=== PATIENT | male | born 1980 | race Caucasian/White ===

== ENCOUNTER 2019-09-06 07:35 | Day surgery (SDC) | payer OTHER ==
[~2019-09-06 07:35] MED LIST: CEFAZOLIN SODIUM IN 0.9 % NACL 2 GM/100 ML BAG IV ONE; LACTATED RINGERS 1,000 ML IV ONE
--- NOTE | 2019-09-06 08:08 | ANESTHESIA ---
Pre-Anesthesia VS, & Labs - Diagnosis right wrist ganglion cyst - Procedure right wrist volar ganglion cyst Vital Signs: Temp Pulse Resp BP Pulse Ox 36.7 C 82 16 123/81 H 97 09/06/19 07:50 09/06/19 07:50 09/06/19 07:50 09/06/19 07:50 09/06/19 07:50 Height 5 ft 7 in Weight (kg) 101.7 kg - NPO >8 hours Home Medications and Allergies Home Medications: Ambulatory Orders Clindamycin Phosphate [Cleocin T] 30 gm TP 08/29/19 Doxycycline Hyclate 100 mg PO BID 08/29/19 Omeprazole 20 mg PO 08/29/19 Clindamycin Phosphate [Cleocin T] 30 gm TP 08/29/19 Doxycycline Hyclate 100 mg PO BID 08/29/19 Omeprazole 20 mg PO 08/29/19 Allergies/Adverse Reactions: Allergies Allergy/AdvReac Type Severity Reaction Status Date / Time Penicillins Allergy Unknown Verified 08/29/19 10:20 Anes History & Medical History - Anesthetic History Anesthesia Complications: reports: No previous complications - Medical History Cardiovascular: reports: None Pulmonary: reports: None Gastrointestinal: reports: GERD Urinary: reports: None Musculoskeletal: reports: Other Endocrine/Autoimmune: reports: None Skin: reports: None, Other (herpes) - Surgical History Orthopedic: Other Exam General: Alert Dental: WNL Mouth Opening: Can't Open Mouth Mallampati classification: II Respiratory: Lungs clear Cardiovascular: Regular rate, Normal S1, Normal S2 Plan Anesthesia Type: General Consent for Procedure(s) Verified and Reviewed: Yes Code Status: Attempt Resuscitation ASA classification: 2-Mild systemic disease Is this case an emergency?: No
[2019-09-06] MEDS ORDERED: BUPIVACAINE 0.5% PF 10 ML VIAL ONE (08:18)
[2019-09-06] MEDS ORDERED: BUPIVACAINE 0.25% PF 30 ML VIAL ONE (08:27)
[2019-09-06] MEDS ORDERED: fentaNYL 100 MCG/2 ML VIAL IVP ONE (08:36)
[2019-09-06] MEDS ORDERED: MIDAZOLAM 2 MG/2 ML VIAL IVP ONE (08:36)
[2019-09-06] MEDS ORDERED: KETOROLAC 30 MG/ML VIAL IVP ONE (08:36)
[2019-09-06] MEDS ORDERED: PROPOFOL 200 MG/20 ML VIAL IVP ONE (08:36)
[2019-09-06] MEDS ORDERED: LIDOCAINE-MPF 2% 5 ML VIAL IM ONE (08:36)
[2019-09-06] MEDS ORDERED: DEXAMETHASONE 4 MG/ML VIAL IVP ONE (08:36)
[2019-09-06] MEDS ORDERED: ONDANSETRON 4 MG/2 ML VIAL IVP ONE (08:36)
[2019-09-06] MEDS ORDERED: BUPIVACAINE 0.5% PF 10 ML VIAL IM ONE (08:59)
[2019-09-06] MEDS ORDERED: oxyCODONE 5 MG TABLET PO PRN (09:32)
[2019-09-06] MEDS ORDERED: ONDANSETRON 4 MG/2 ML VIAL IVP PRN (09:32)
[2019-09-06] MEDS ORDERED: LACTATED RINGERS 1,000 ML IV ONE (09:33)
--- NOTE | 2019-09-06 09:36 | OPERATIVE REPORT ---
Operative Report - Other Other Information/Narrative: Date of Surgery: 06 September 2019 Pre-Op Diagnosis: Right volar wrist ganglion Procedure: Right volar wrist ganglion excision Postop Diagnosis: Same Primary Surgeon: James Vaz Secondary Surgeon: None Complications: None Tourniquet Time: 18 minutes EBL: 5 cc Postoperative Protocol: Leave splint on until follow-up. Suture tails cut at 2 weeks. Range of motion from 2-6 weeks. Strengthening may begin at 6 weeks. Indication For Surgery: 38-year-old male with a history of a dorsal wrist ganglion excised in 2018 that did well. 1 year later he noticed a bump on the volar aspect of the wrist which was painful when doing push-ups or other resisted loading activities. He has failed nonoperative treatment and desired surgical excision. The risks, benefits, and alternatives were discussed. Risks include pain, bleeding, infection, damage to nearby structures, numbness, lack of symptom relief, implant complications, nonunion, need for further surgery, DVT, PE, stroke, and . Written consent was obtained. Procedure in Detail: The patient was met in the pre-operative hold area on the day of the procedure. The operative extremity was signed and questions were answered. The patient was brought to the operating room and a general anesthetic was administered. Supine position was used and bony prominences were padded. Standard prepping and draping was performed. A time out confirmed patient identification, laterality, procedure, allergies, antibiotics, and images. An Esmarch was used to exsanguinate the limb and the tourniquet was elevated to 200 mmHg. The wrist was extended to accentuate the mass. A 3 cm longitudinal hockey-stick incision was made directly overlying the mass angled at the wrist crease toward the thumb. Electrocautery was used to obtain hemostasis. Scissor dissection was used to separate the mass from the surrounding fascia and connective tissue. Traction was pulled on the mass with an Allis and I carefully dissected around it tracing the stalk back to the tendon sheath of the flexor carpi radialis at the location where it enters its fibro-osseous tunnel. The stalk was excised with a 5 mm square section of sheath. It was excised en bloc and the mass was passed off to the back table and sent for pathology. I carefully inspected the wound to ensure that all of the cyst had been fully excised. The wound was then irrigated copiously with sterile saline. The incision was closed with nylon ho rizontal mattress sutures. 10 cc of quarter percent Marcaine was placed near the wound. A sterile dressing was applied and a volar resting splint was applied. The patient was awakened and transferred to recovery room.
[2019-09-06 10:31] VITALS: BP 120/89
== END 2019-09-06 07:36 | disposition home or self-care (01) ==
LOC: SDS 07:35
PROVIDERS: ATTEND Orthopaedic Surgery
PROC: 0LB50ZZ Excision of Right Lower Arm and Wrist Tendon, Open Approach (ICD-10-PCS; principal; 2019-09-06 08:45)
DX: M67.431 Ganglion, right wrist (principal); F17.220 Nicotine dependence, chewing tobacco, uncomplicated; F17.210 Nicotine dependence, cigarettes, uncomplicated; F17.290 Nicotine dependence, other tobacco product, uncomplicated; Z80.9 Family history of malignant neoplasm, unspecified; Z82.49 Family history of ischemic heart disease and other diseases of the circulatory system

== ENCOUNTER 2020-04-30 14:40 | Outpatient (CLI) | payer OTHER ==
[2020-04-30] MEDS ORDERED: GADOBUTROL 10 MMOL/10 ML VIAL ONE (15:24)
[2020-04-30] MEDS ORDERED: GADOBUTROL 10 MMOL/10 ML VIAL IVP ONE (16:09)
--- NOTE | 2020-04-30 16:49 | MRI Report ---
PROCEDURE: Brain W/WO INDICATIONS: HEADACHE, NAUSEA, VERTIGO CONTRAST: IV CONTRAST: Gadavist ml: 10 TECHNIQUE: Noncontrast axial T1 spin echo, axial T2 fast spin echo, sagittal and axial FLAIR, coronal T2 fast sp in echo, axial gradient echo, axial diffusion and ADC through the brain. In this patient, dedicated thin section coronal T2-weighted images imaging were performed through the hippocampal formations. Af ter the administration of contrast, axial and coronal T1 spin echo with fat saturation through the br ain. COMPARISON: None. FINDINGS: Image quality: Excellent. CSF spaces: Basal cisterns are patent. No extra-axial fluid collections. Ventricles are normal in size and shape. Brain: No midline shift. No intracranial bleeds or masses. No abnormal intracranial enhancement. There is cerebral volume loss for age. There is periventricular white matter chronic small vessel is chemic change. The brainstem appears normal. Diffusion-weighted images demonstrate no acute ischemi c insults. No chronic ischemic insults. Normal intravascular flow voids are present. Scrutiny is g iven to the hippocampal formations. No focal abnormality or significant asymmetry can be seen. Incide ntal note is made of a cavum of septum pellucidum. This is of likely no clinical consequence, when in cidentally discovered in isolation. Skull and face: Calvarial marrow is normal in signal. Orbits appear normal. Sinuses: Sinuses and mastoids appear clear. IMPRESSION: No significant intracranial abnormality is seen to explain the patient's presenting symptoms. Reviewed by: Stephane Bee MD on 04/30/2020 3:47 PM [facility] Approved by: Stephane Bee MD on 04/30/2020 3:47 PM [facility] Station ID: [id number]
== END 2020-04-30 14:41 | disposition home or self-care (01) ==
LOC: DI 14:40
PROVIDERS: ATTEND Family Medicine
DX: R42 Dizziness and giddiness (principal)
CPT/HCPCS: 70553; A9585

== ENCOUNTER 2021-09-16 08:00 | Outpatient (CLI) | payer OTHER | END 2021-09-16 23:59 | LOC: LAB.N 08:00 | PROVIDERS: ATTEND Physician Assistant Medical | DX: L02.01 Cutaneous abscess of face (principal) | CPT/HCPCS: 87070; 87181; 87205 ==